=== PATIENT | male | born 1985 | race Caucasian/White ===

== ENCOUNTER 2022-09-09 07:30 | Emergency (ER) | payer SELFPAY ==
[2022-09-09] MEDS ORDERED: NA CHLORIDE 0.9% 1,000 ML ONE (07:46)
[2022-09-09 07:55] LABS: Absolute Lymphocytes (CBC) 1.6 K/uL (0.7-4.9); Hematocrit 43.8 % (39.6-49.0); Lymphocytes % 22.1 % (15.3-44.8); MCV 96.5 fL (80-100); MPV 8.1 fL (7.6-11.3); RBC Red Blood Cell Count 4.54 M/uL (4.33-5.43)
[2022-09-09 08:23] LABS: ALT/SGPT 33 U/L (16-61); Albumin 3.3 g/dL (3.4-5.0); Alkaline Phosphatase 80 U/L (45-117); BUN Blood Urea Nitrogen 11 mg/dL (7-18); Bicarbonate 30 mEq/L (21-32); Bilirubin Direct 0.2 mg/dL (0-0.2); Bilirubin Total 0.6 mg/dL (0.2-1.0); Glomerular Filtration Rate 98 ml/min (=/>90); Glucose Level 141 mg/dL (74-106); Protein, Total 6.7 g/dL (6.4-8.2); Sodium Level 137 mEq/L (136-145)
[2022-09-09 08:24] LABS: AST/SGOT 52 U/L (15-37); Potassium 3.7 mEq/L (3.5-5.1)
[2022-09-09 08:34] LABS: Protime INR 0.86
--- NOTE | 2022-09-09 10:12 | EDPHYS ---
Physician Documentation [facility] Name: Eduar Mendez Age: 37 yrs Sex: Male : 1985 Arrival Date: 09/09/2022 Time: 07:30 Bed 7 Private MD: ED Physician Chi White HPI: 09/09 09:14 This 37 yrs old Male presents to ER via EMS with complaints of Drug Abuse, ETOH Abuse. rn 09:14 The patient presents to the emergency department with a possible overdose. Context: rn Method: ingestion, Time: the patient's OD/poisoning occurred at an unknown time, the OD/poisoning occurred at at an unknown location. Associated signs and symptoms: Pertinent negatives: auditory hallucinations, visual hallucinations. Severity of symptoms: At their worst the symptoms were severe in the emergency department the symptoms have improved. It is unknown whether or not the patient has had similar symptoms in the past. The patient has not recently seen a physician. EMS reports patient at [facility], was going to work, was drinking heavily last night and took pain meds and nyquil. Denies suicidal ideation/homicidal ideation. Found unresponsive, only awakened to sternal rub, given narcan 2mg with immediate response, now more alert. . Historical: - Allergies: 07:33 PENICILLINS; ld1 07:33 Tylenol; ld1 - Home Meds: 07:33 None [Active]; ld1 - PMHx: 07:33 None; ld1 - PSHx: 07:33 None; ld1 - Immunization history:: Adult Immunizations up to date, Client reports receiving the 2nd dose of the Covid vaccine. - Social history:: Smoking status: Reported history of juuling and/or vaping. Patient uses alcohol, on a daily basis. - Family history:: not pertinent. - Hospitalizations: : No recent hospitalization is reported. ROS: 09:14 Constitutional: Negative for fever, chills, and weight loss, Cardiovascular: + rn palpitations Respiratory: Negative for shortness of breath, cough, wheezing, and pleuritic chest pain, Abdomen/GI: Negative for abdominal pain, nausea, vomiting, diarrhea, and constipation, Back: Negative for injury and pain, MS/Extremity: Negative for injury and deformity, Skin: Negative for injury, rash, and discoloration, Neuro: Negative for headache, weakness, numbness, tingling, and seizure. Exam: 09:14 Constitutional: This is a well developed, well nourished patient who is awake, alert, rn and in no acute distress. Head/Face: Normocephalic, atraumatic. ENT: dry MM Cardiovascular: tachycardic, regular Respiratory: No increased work of breathing, no retractions or nasal flaring. Abdomen/GI: Soft, non-tender Skin: Warm, dry MS/ Extremity: Pulses equal, no cyanosis. Neuro: Awake and alert, GCS 15 Vital Signs: 07:32 BP 166 / 107; Pulse 112; Resp 20; Temp 99.5(O); Pulse Ox 96% on R/A; Weight 77.11 kg; ld1 Height 5 ft. 7 in. ; Pain 0/10; 08:36 BP 132 / 90; Pulse 118; Resp 18; Pulse Ox 97% on R/A; ld1 09:33 BP 121 / 81; Pulse 96; Resp 18; Pulse Ox 98% on R/A; ld1 10:56 BP 108 / 86; Pulse 91; Resp 18; Pulse Ox 99% on R/A; ld1 07:32 Body Mass Index 26.63 (77.11 kg, 170.18 cm) ld1 07:32 Pain Scale: Adult ld1 MDM: 07:32 Patient medically screened. rn 10:07 Differential diagnosis: Ingestion/exposure to Opiates, ETOH. rn 10:08 Data reviewed: vital signs, nurses notes, lab test result(s), EKG, and as a result, I rn will discharge patient. Counseling: I had a detailed discussion with the patient and/or guardian regarding: the historical points, exam findings, and any diagnostic results supporting the discharge/admit diagnosis, lab results, the need for outpatient follow up, to return to the emergency department if symptoms worsen or persist or if there are any questions or concerns that arise at home. Response to treatment: the patient's symptoms have markedly improved after treatment, and as a result, I will discharge patient. Special discussion: I discussed with the patient/guardian in detail that at this point there is no indication for admission to the hospital. It is understood, however, that if the symptoms persist or worsen the patient needs to return immediately for re-evaluation. 10:08 ED course: Pt feels much better, normal vitals, normal tylenol level, no need for rn repeat narcan, will dc home with instructions to stop using drugs. . 09/09 07:33 Order name: Acetaminophen; Complete Time: 10:07 rn 09/09 07:33 Order name: Basic Metabolic Panel; Complete Time: 10:07 rn 09/09 07:33 Order name: CBC with Diff; Complete Time: 10:07 rn 09/09 07:33 Order name: ETOH Level; Complete Time: 10:07 rn 09/09 07:33 Order name: Hepatic Function; Complete Time: 10:07 rn 09/09 07:33 Order name: PT-INR; Complete Time: 10:07 rn 09/09 07:33 Order name: Ptt, Activated; Complete Time: 10:07 rn 09/09 07:33 Order name: Salicylate; Complete Time: 10:07 rn 09/09 07:33 Order name: EKG; Complete Time: 07:34 rn 09/09 07:33 Order name: IV Start; Complete Time: 07:48 rn 09/09 07:33 Order name: EKG - Nurse/Tech; Complete Time: 07:54 rn 09/09 07:33 Order name: Labs collected and sent; Complete Time: 07:48 rn 09/09 08:04 Order name: Labs - recollect needed: please recollect blue top; Complete Time: 09:36 em1 Administered Medications: 07:54 Drug: NS 0.9% IV 1000 ml Route: IV; Rate: 1000 ml; Site: left antecubital; ld1 Disposition Summary: 09/09/22 10:11 Discharge Ordered Location: Home rn Problem: new rn Symptoms: have improved rn Condition: Stable rn Diagnosis - Opioid abuse with intoxication, unspecified rn Followup: rn - With: Private Physician - When: As needed - Reason: Recheck today's complaints, Re-evaluation by your physician Discharge Instructions: - Discharge Summary Sheet rn - Opioid Overdose rn - Substance Use Disorder rn - Opioid Use Disorder rn Forms: - Medication Reconciliation Form rn - Thank You Letter rn - Antibiotic internet assessor - Prescription Opioid Use rn - Work release form ld1 Signatures: Dispatcher [employer] Chi Robertson MD MD rn Martinez, Eric em1 Cari Carreon RN RN ld1
--- NOTE | 2022-09-09 10:12 | ER ---
Nurse's Notes [facility] Name: Eduar Mendez Age: 37 yrs Sex: Male : 1985 Arrival Date: 09/09/2022 Time: 07:30 Bed 7 Private MD: Diagnosis: Opioid abuse with intoxication, unspecified Presentation: 09/09 07:32 Chief complaint: EMS states[facility]. Upon ld1 arrival EMS administered 2mg Narcan intranasal - pt responded appropriately. Pt denies pain, denies drug use - reports taking nighttime medicine to help sleep and consuming 1/2 gallon of Vodka. Coronavirus screen: At this time, the client does not indicate any symptoms associated with coronavirus-19. Ebola Screen: No symptoms or risks identified at this time. Initial Sepsis Screen: Does the patient meet any 2 criteria? No. Patient's initial sepsis screen is negative. Does the patient have a suspected source of infection? No. Patient's initial sepsis screen is negative. Risk Assessment: Do you want to hurt yourself or someone else? Patient reports no desire to harm self or others. Onset of symptoms was September 09, 2022. 07:32 Method Of Arrival: EMS: [facility] ld1 07:32 Acuity: MICHAEL 3 ld1 07:35 Care prior to arrival: Medication(s) given: 2mg Narcan. ld1 Triage Assessment: 07:33 General: Appears in no apparent distress. comfortable, Behavior is calm, cooperative, ld1 appropriate for age. Pain: Denies pain. EENT: No signs and/or symptoms were reported regarding the EENT system. Neuro: Level of Consciousness is awake, alert, obeys commands, Oriented to person, place, time, situation, Appropriate for age. Cardiovascular: Capillary refill < 3 seconds Patient's skin is warm and dry. Rhythm is sinus tachycardia. Respiratory: Airway is patent Respiratory effort is even, unlabored. GI: Abdomen is flat, non-distended. : No signs and/or symptoms were reported regarding the genitourinary system. Derm: No signs and/or symptoms reported regarding the dermatologic system. Musculoskeletal: No signs and/or symptoms reported regarding the musculoskeletal system. Historical: - Allergies: 07:33 PENICILLINS; ld1 07:33 Tylenol; ld1 - Home Meds: 07:33 None [Active]; ld1 - PMHx: 07:33 None; ld1 - PSHx: 07:33 None; ld1 - Immunization history:: Adult Immunizations up to date, Client reports receiving the 2nd dose of the Covid vaccine. - Social history:: Smoking status: Reported history of juuling and/or vaping. Patient uses alcohol, on a daily basis. - Family history:: not pertinent. - Hospitalizations: : No recent hospitalization is reported. Screenin:30 [facility] ED Fall Risk Assessment (Adult) History of falling in the last 3 months, ld1 including since admission No falls in past 3 months (0 pts). Abuse screen: Denies threats or abuse. Denies injuries from another. Nutritional screening: No deficits noted. Tuberculosis screening: No symptoms or risk factors identified. Assessment: 07:30 Reassessment: See triage assessment. ERP at bedside. ld1 Overdose: 11:04 [place] Suicide Severity Screening: "In the past month, have you wished you were ld1 or wished you could go to sleep and not wake up?" Patient responds "yes." Based off client's responses, additional C-SSRS screening questions required. "In the past month, have you actually had any thoughts of killing yourself?" Patient responds "no." "In your lifetime, have you ever done anything, started to do anything, or prepared to do anything to end your life?" Patient responds "no.". 11:04 [place] Suicide Severity Screening: "In the past month, have you actually had any ld1 thoughts of killing yourself?" Patient responds "yes." Based off client's responses, additional C-SSRS screening questions required. Vital Signs: 07:32 BP 166 / 107; Pulse 112; Resp 20; Temp 99.5(O); Pulse Ox 96% on R/A; Weight 77.11 kg; ld1 Height 5 ft. 7 in. ; Pain 0/10; 08:36 BP 132 / 90; Pulse 118; Resp 18; Pulse Ox 97% on R/A; ld1 09:33 BP 121 / 81; Pulse 96; Resp 18; Pulse Ox 98% on R/A; ld1 10:56 BP 108 / 86; Pulse 91; Resp 18; Pulse Ox 99% on R/A; ld1 07:32 Body Mass Index 26.63 (77.11 kg, 170.18 cm) ld1 07:32 Pain Scale: Adult ld1 ED Course: 07:30 Patient has correct armband on for positive identification. Placed in gown. Bed in low ld1 position. Call light in reach. Side rails up X2. youth nutritional monitor on. Pulse ox on. NIBP on. Door closed. Noise minimized. Warm blanket given. 07:30 No provider procedures requiring assistance completed. ld1 07:31 Patient arrived in ED. ld1 07:32 Chi White MD is Attending Physician. rn 07:33 Triage completed. ld1 07:33 Arm band placed on right wrist. ld1 07:49 Inserted saline lock: 20 gauge in left antecubital area, using aseptic technique. Blood os collected. 08:01 Cari Carreon, RN is Primary Nurse. ld1 11:05 IV discontinued, intact, bleeding controlled, No redness/swelling at site. ld1 Administered Medications: 07:54 Drug: NS 0.9% IV 1000 ml Route: IV; Rate: 1000 ml; Site: left antecubital; ld1 Medication: 07:30 VIS not applicable for this client. ld1 Outcome: 10:11 Discharge ordered by . rn 11:04 Discharged to home ambulatory. ld1 11:04 Condition: stable 11:04 Discharge instructions given to patient, Instructed on discharge instructions, follow up and referral plans. Demonstrated understanding of instructions, follow-up care. 11:05 Patient left the ED. ld1 Signatures: Chi White MD MD rn Sims, Lauren, RN RN ld1 Bobby Zamudio RN RN os
[2022-09-09 11:09] VITALS: TEMP 99.5
[2022-09-09 11:14] VITALS: BP 108/86; O2SAT 99
--- NOTE | 2022-09-11 07:06 | EKG ---
Test Date: 2022-09-09 Test Time: 07:45:41 [employer] Produ[employer]: Evangelist [place] MEASUREMENT RESULTS: Intervals: Rate: 115 WV: 122 QRSD: 86 QT: 336 QTc: 464 [place]: P: 63 WV: 122 QRS: 94 T: -8 INTERPRETIVE STATEMENTS: Sinus tachycardia Otherwise normal ECG No previous ECG available for comparison Electronically Signed On 09-11-22 07:00:36 CDT by Jorge Lopez
== END 2022-09-09 11:05 | disposition home or self-care (01) ==
LOC: ER 07:30
DX: F11.129 Opioid abuse with intoxication, unspecified (principal); Z88.0 Allergy status to penicillin; Z88.6 Allergy status to analgesic agent
CPT/HCPCS: 36415; 80048; 80076; 85025; 85610; 85730; 93005; 99285; G0480; J7030